=== PATIENT | male | born 1970 | race Caucasian/White ===

== ENCOUNTER 2021-04-20 10:12 | Emergency (ER) | payer OTHER ==
[~2021-04-20] VITALS: Ht 177.8 cm; Wt 120.2 kg
[2021-04-20 10:28] LABS: ABSOLUTE LYMPHOCYTES 1.5 thou/uL (0.8-5.3); ABSOLUTE MONOCYTES 0.9 thou/uL (0.0-1.2); ABSOLUTE NEUTROPHILS 8.5 thou/uL (1.6-8.1); BASOPHILS 0.4 %; EOSINOPHILS 0.4 %; HEMATOCRIT 42.4 % (42.0-52.0); HEMOGLOBIN 14.4 gm/dL (14.0-18.0); LYMPHOCYTES 13.3 %; MCH 31.4 pg (26.0-34.0); MCHC 33.9 g/dL (28.0-37.0); MCV 92.7 fL (80.0-100.0); MONOCYTES 8.1 %; MPV 9.2 fl. (7.2-11.1); NUCLEATED RBCS 0 /100WBC; PLATELET COUNT* 235 thou/uL (150-400); POLYS 77.8 %; RBC 4.58 mil/uL (4.50-6.00); RDW-CV 12.6 % (10.5-14.5); WBC 10.9 thou/uL (4.0-11.0)
[2021-04-20 10:40] LABS: POTASSIUM 3.6 mmol/L (3.5-5.1)
[2021-04-20 10:50] LABS: ALBUMIN 3.9 g/dL (3.4-5.0); MAGNESIUM 1.8 mg/dL (1.8-2.4); TOTAL BILIRUBIN 0.4 mg/dL (<0.1-1.0); TOTAL PROTEIN 8.2 g/dL (6.4-8.2)
[2021-04-20 13:23] VITALS: BP 148/85
--- NOTE | 2021-04-20 13:45 | EKG ---
[place] [address] ELECTROCARDIOGRAM REPORT Name: TYSON DECKER Room: [facility]#: [id number] Admission: 04/20/21 Attend Phys: Discharge: 04/20/21 Date of : 66 Date of Service: 04/20/21 1019 Report #: [id number] THIS REPORT FOR: //name// [facility] ED Test Date: 2021-04-20 Test Time: 10:19:50 Pat Name: TYSON JERONIMO Department: Room: Gender: Hvac Specialist: : [id number] Requested By: Adrián Guevara Order Number: [id number] MD: Efra Steele Measurements Intervals [place] Rate: 90 P: 68 LA: 176 QRS: 85 QRSD: 91 T: 21 QT: 363 QTc: 444 Interpretive Statements Sinus rhythm Baseline wander in lead(s) II No previous ECG available for comparison Electronically Signed On 04-20-2021 13:45:47 [employer] by Efra Steele [email or web address] <ELECTRONICALLY SIGNED> By: Efra Steele MD, [facility] 04/20/21 1345 1019 1019 Efra Steele MD, FAC /EPI
== END 2021-04-20 13:23 | disposition home or self-care (01) ==
LOC: M.ERS 10:12
PROVIDERS: Family Medicine
DX: R07.89 Other chest pain (principal)